=== PATIENT | female | born 2000 | race Two or more races ===

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

== ENCOUNTER 2022-08-07 12:04 | Emergency (ER) | payer OTHER, SELFPAY ==
[2022-08-07 12:05] VITALS: BP 120/79; PULSE 63; RESP 14; TEMP 36.6; O2SAT 98; BMI 21.2
--- NOTE | 2022-08-07 12:56 | EX.ED.DYSGE1 ---
HPI History of Present Illness Chief Complaint: Anxiety Informant: patient Narrative Narrative: Patient presents with what she thinks was a panic attack. She has had these before but they have been quite rare. She states she is under a lot of stress. She is taking 7 classes at school, doing competitive swimming, and working multiple jobs. Because of this she has been drinking a lot of caffeine the last couple days. She has not been sleeping much because of this. She normally drinks about 3 cups of coffee in a day. But she has had at least 4 cups of coffee plus for other energy drinks plus a few others. She was sitting in class and she stated she started to feel anxious a little short of breath with her heart racing. She had trouble focusing. It is now better now. She has never had PE or DVT. No leg pain or swelling. She feels back to baseline. She is talked to her mom. There are talking about stopping the competitive swimming because of the significant time that it takes on her. PFSH PFSH Medical History no medical history Allergy/AdvReac Type Severity Reaction Status Date / Time No Known Allergies Allergy Verified 08/07/22 12:04 Social History Smoking Status: Never smoker ROS ROS ED Constitutional Constitutional ED: Denies chills or fever(s) Eyes Eyes: Denies blurry vision, change in vision or diplopia ENT ENT ED: Denies rhinorrhea Cardiovascular Cardiovascular: Reports racing heartbeat; Denies chest pain Respiratory/Chest Respiratory/Chest: Reports dyspnea; Denies cough or sputum Gastrointestinal Gastrointestinal: Denies vomiting Genitourinary Genitourinary ED: Denies dysuria or hematuria Musculoskeletal Musculoskeletal: Denies arthralgias or myalgias Integumentary Denies Abrasions or rash Neurologic Neurologic: Reports paresthesias; Denies headache(s) or weakness Psychiatric Psychiatric: Denies anxiety, depression, suicidal ideation or suicidal thoughts Endocrine Endocrinology: Denies polydipsia or polyuria Hematologic/Lymphatic Hematologic/Lymphatic: Denies easy bleeding or easy bruising Allergic/Immunologic Allergic/Immunologic ED: Reports urticaria EXAM Physical Exam Const Vital Signs: 08/07/22 12:05 Temperature 97.9 F Temperature Source Oral Pulse Rate 63 Respiratory Rate 14 Blood Pressure 120/79 Blood Pressure Mean 92 Pulse Ox 98 Oxygen Delivery Method Room Air Positive well nourished and well developed General Appearance ED: well developed and NAD; Negative for cyanotic or diaphoretic HEENT Reports moist mucous membranes Eyes PERRL and EOMs intact bilaterally General Eye ED: Negative for scleral icterus Neck supple Resp normal respiratory effort and clear to auscultation bilaterally Cardio regular rate, regular rhythm and no murmurs Rate: Negative for tachycardic GI normal to inspection, nondistended, normoactive bowel sounds and non-tender Palpation: soft Back/Spine no CVA tenderness Extremity normal to inspection General Extremety ED: Negative for edema or tenderness General Extremity: Negative for edema Neuro oriented x3 and no sensory deficits noted Motor Exam: strength 5/5 throughout Psych mental status grossly normal Attitude: No agitated Mood & Affect: Negative for depressed, anxious or tearful Skin no rashes or lesions noted MDM MDM MDM Narrative Medical decision making narrative: Patient has a history of panic attacks. She has multiple stressors and increase stimulant use that would cause this. They spontaneously started and stopped. She is a healthy person who competitively swims. She has no symptoms with this. Her exam is normal and her symptoms are resolved. I do not think work-up is needed. She has a normal sinus rhythm at about 70 on the monitor now. She is comfortable with this plan. She will make lifestyle changes. Discharge Plan Triage Chief Complaint: Anxiety ED Provider: Kelvin Crow Dx/Rx/DC Orders Clinical Impression: Panic attack, Caffeine adverse reaction Instructions: ED Panic Attack Referrals: Monica Barba DO [Med Staff - [employer]] - 3-5 Days Disposition Disposition: Home, Self Care
[2022-08-07 13:53] VITALS: BP 116/66; PULSE 66; RESP 16; O2SAT 96
== END 2022-08-07 13:55 | disposition home or self-care (01) ==
PROVIDERS: Emergency Provider Emergency Medicine; Visit Provider Emergency Medicine
DX: F41.0 Panic disorder [episodic paroxysmal anxiety] (principal); T43.615A Adverse effect of caffeine, initial encounter
CPT/HCPCS: 99284

== ENCOUNTER 2023-01-10 14:00 | Emergency (ER) | payer OTHER, SELFPAY ==
[2023-01-10 14:01] VITALS: BP 95/73; PULSE 89; RESP 14; TEMP 36.7; O2SAT 100; BMI 22.2
[2023-01-10 14:58] LABS: Absolute Lymphocyte Count 0.46 X10^3/uL (0.83-4.51); Basophil# 0.02 X10^3/uL; Basophil% 0.2 % (0-1); Eosinophil# 0.06 X10^3/uL; Eosinophils% 0.6 % (0-5); Hematocrit 40.2 % (37-47); Hemoglobin 13.5 g/dL (12.0-15.0); Lymphocyte # 0.46 X10^3/ul (0.83-4.51); Lymphocyte % 4.5 % (19-41); Mean Corp Hgb Conc 33.6 g/dL (32-36); Mean Corpuscular Hgb 31.6 pg (27.0-32.0); Mean Corpuscular Volume 94.1 fL (81-99); Mean Platelet Vol. 10.6 fl (6.2-12.0); Monocyte# 0.56 X10^3/uL; Monocyte% 5.5 % (0-10); NRBC Flagged by Analyzer 0 % (0-5); Neutrophil # 9.04 X10^3/uL (2.7-7.7); Neutrophil % 88.7 % (47-70); POSITIVE DIFFERENTIAL YES; Platelet Count 175 K/mm3 (150-450); RBC Distribution Width CV 13.4 % (11.6-14.6); RBC Distribution Width SD 46.1 fl (35.1-43.9); Red Blood Count 4.27 M/mm3 (4.2-5.4); White Blood Count 10.2 K/mm3 (4.4-11.0)
[2023-01-10 15:11] LABS: Anion Gap 6 (5-15); BUN 14 mg/dL (7-18); BUN/Creat Ratio 17.6 RATIO (10-20); Calcium,Total 8.6 mg/dL (8.5-10.1); Chloride 108 mmol/L (98-107); EST Glomerular Filtration Rate 97 mL/min (>60); Est Glom Filt Rate - Afr Amer 118 mL/min (>60); Estimated Creatinine Clearance 105.01 ml/min; Glucose 90 mg/dL (74-106); Potassium 3.7 mmol/L (3.5-5.1); Sodium Level 142 mmol/L (136-145)
[2023-01-10 15:14] LABS: Differential Indicated SCAN CRITERIA MET
[2023-01-10 15:17] LABS: Internal QC Validated? YES +Cl - CLEAR BKGD; Pregnancy, Serum, hCG Quali. NEGATIVE Negative
[2023-01-10 15:55] LABS: Differential Comment SCANNED
--- NOTE | 2023-01-10 16:04 | EDS_ITS ---
HPI HPI - GI History of Present Illness Chief Complaint: Abd Pain Informant: patient Narrative Narrative: Presents with vomiting since 4:30 AM this morning. Approximately 4 episodes with bile. She had diarrhea earlier this morning is resolved. She went to the wellness center at her school they gave her medicine started with an M which did not work. Denies abdominal cramping states lightheaded symptoms. No chest pains or shortness of breath. No urinary symptoms last menstrual period 2 weeks ago. History of anxiety not on any current medications. Currently nauseated. Denies any recent antibiotic use. Prior similar symptoms: No PFSH PFSH Home Medications ondansetron 4 mg disintegrating tablet 4 mg PO Q8H PRN PRN Nausea #10 tabs 01/10/23 [Rx Last Taken Unknown] Allergy/AdvReac Type Severity Reaction Status Date / Time No Known Allergies Allergy Verified 01/10/23 14:01 Social History Smoking Status: Never smoker ROS ROS ED Constitutional Constitutional ED: Denies chills, fever(s) or sweats Eyes Eyes: Denies change in vision ENT ENT ED: Denies dysphagia or sore throat Cardiovascular Cardiovascular: Denies chest pain, leg edema, palpitations or racing heartbeat Respiratory/Chest Respiratory/Chest: Denies cough, dyspnea or dyspnea on exertion Gastrointestinal Gastrointestinal: Reports diarrhea, nausea and vomiting; Denies abdominal pain Genitourinary Genitourinary ED: Denies dysuria, hematuria or urinary frequency Musculoskeletal Musculoskeletal: Denies back pain, extremity pain or neck pain Integumentary Denies rash or wounds Neurologic Neurologic: Denies headache(s), paresthesias or weakness EXAM Physical Exam Const Vital Signs: 01/10/23 14:01 01/10/23 16:45 Temperature 98.1 F Temperature Source Temporal Pulse Rate 89 Respiratory Rate 14 Blood Pressure 95/73 Blood Pressure Mean 80 Pulse Ox 100 99 Oxygen Delivery Method Room Air Room Air Positive well nourished and well developed General Appearance ED: well developed and NAD HEENT HEENT Narrative: Mild dry mucosal membranes normocephalic and atraumatic Eyes PERRL, EOMs intact bilaterally and conjunctivae normal General Eye ED: Yes normal appearance of both eyes Neck no lymphadenopathy and supple General: Negative for tenderness Chest Wall Chest: Negative for tenderness Resp normal respiratory effort and normal air movement Effort and Inspection: symmetric chest movement; Negative for respiratory distress Cardio regular rate, regular rhythm and no murmurs Peripheral Pulses: pulses 2+ throughout GI normal to inspection, nondistended, normoactive bowel sounds and non-tender GI Narrative: Negative Hooper's or McBurney's tenderness. Palpation: Negative for guarding or rebound tenderness present Back/Spine no CVA tenderness and no thoracic nor lumbar tenderness Extremity normal to inspection General Extremety ED: Negative for edema or tenderness General Extremity: Negative for edema Neuro oriented x3, CN's II-XII intact bilaterally and no sensory deficits noted Sensorium / Orientation: awake and alert Skin no rashes or lesions noted and no wounds MDM MDM MDM Narrative Medical decision making narrative: Interventions / MDM: Differential diagnosis: Gastroenteritis, gastritis, Diagnosis considered but do not suspect: Cholecystitis, however nontender abdomen. No risk for C. difficile. My EKG interpretation: N/A Imaging independently reviewed and interpreted by myself: N/A External documents reviewed: N/A Test considered but not ordered:N/A ED course: Patient soft abdomen, nonsurgical. Reported pain from nursing triage however patient denied any. Nausea or vomiting with diarrhea this morning it resolved. Mild dry mucosal membranes. IV established fluids were given Labs stable electrolytes white count 10.2 hCG negative. Urine noted 25 leukocytes rare bacteria she denies symptoms, culture sent we will treat at this time. Re-evaluation: Improving symptoms tolerating oral fluids. Prescription Zofran sent to her pharmacy. Discussed likely viral gastroenteritis. She will continue oral fluids at home, return precaution discussed. There was discussion social history she denies smoking marijuana use. 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 Discussed possible sensitivity to the older causing symptoms. All questions were answered. Disposition discussed with patient/family/significant other: Patient and family Case discussed with consulting clinician: N/A Lab Data Attestation: I reviewed the patient's lab results. Labs: Laboratory Results - last 24 hr 01/10/23 01/10/23 01/10/23 14:47 14:47 14:47 WBC 10.2 RBC 4.27 Hgb 13.5 Hct 40.2 MCV 94.1 MCH 31.6 MCHC 33.6 RDW Std Deviation 46.1 H RDW Coeff of Anjelica 13.4 Plt Count 175 MPV 10.6 Immature Gran % (Auto) 0.500 Neut % (Auto) 88.7 H Lymph % (Auto) 4.5 L [place] % (Auto) 5.5 Eos % (Auto) 0.6 Baso % (Auto) 0.2 Absolute Neuts (auto) 9.0 H Absolute Lymphs (auto) 0.46 L Nucleated RBC % 0 Differential Comment SCANNED Sodium 142 Potassium 3.7 Chloride 108 H Carbon Dioxide 28.0 Anion Gap 6 BUN 14 Creatinine 0.80 Estim Creat Clear Calc 105.01 Est GFR (MDRD) Af Amer 118 Est GFR (MDRD) Non-Af 97 BUN/Creatinine Ratio 17.6 Glucose 90 Calcium 8.6 Serum , Qual NEGATIVE Urine Color Urine Clarity Urine pH Ur Specific [place] Urine Protein Urine Glucose (UA) Urine Ketones Urine Occult Blood Urine Nitrite Urine Bilirubin Urine Urobilinogen Ur Leukocyte Esterase Urine RBC Urine WBC Ur Squamous Epith Cells Urine Bacteria Urine Mucus 01/10/23 16:00 WBC RBC Hgb Hct MCV MCH MCHC RDW Std Deviation RDW Coeff of Anjelica Plt Count MPV Immature Gran % (Auto) Neut % (Auto) Lymph % (Auto) [place] % (Auto) Eos % (Auto) Baso % (Auto) Absolute Neuts (auto) Absolute Lymphs (auto) Nucleated RBC % Differential Comment Sodium Potassium Chloride Carbon Dioxide Anion Gap BUN Creatinine Estim Creat Clear Calc Est GFR (MDRD) Af Amer Est GFR (MDRD) Non-Af BUN/Creatinine Ratio Glucose Calcium Serum , Qual Urine Color Yellow Urine Clarity Clear Urine pH 5.0 Ur Specific [place] 1.020 Urine Protein 15 H Urine Glucose (UA) Normal Urine Ketones 5 H Urine Occult Blood Negative Urine Nitrite Negative Urine Bilirubin Negative Urine Urobilinogen Normal Ur Leukocyte Esterase 25 H Urine RBC 0 SEEN Urine WBC 0-5 SEEN Ur Squamous Epith Cells 0 SEEN Urine Bacteria RARE Urine Mucus 1+ Discharge Plan Triage Chief Complaint: Abd Pain ED Provider: Silvio Richardson Dx/Rx/DC Orders Clinical Impression: Nausea & vomiting, Diarrhea, Dehydration Instructions: ED Gastroenteritis, Viral (Adult) Prescriptions: New ondansetron [ondansetron] 4 mg tablet,disintegrating 4 mg PO Q8H PRN PRN (Reason: Nausea) Qty: 10 0RF Stand Alone Forms: ED Work / School Excuse Primary Care Provider: RACHAEL BARBOSA Referrals: RACHAEL BARBOSA [Other] - 3-5 Days if not improving Disposition Disposition: Home, Self Care Discharge Date/Time: 01/10/23 17:31
[2023-01-10 16:07] LABS: Red Blood Cells-Urine 0 SEEN /hpf (0-5); Squamous Epithelial Cells - UA 0 SEEN /hpf (5-10)
[2023-01-10 16:16] LABS: Color, Urine Yellow (Yellow); Glucose, Dipstick Normal (Normal); Ketone-Dipstick 5 mg/dl (Negative); Leukocyte Esterase-Dipstick 25 /ul (Negative); Nitrite-Dipstick Negative (Negative); Occult Blood-Urine Negative /ul (Negative); Protein-Dipstick 15 mg/dl (Negative); Urine Bilirubin Dipstick Negative (Negative); Urine Clarity Clear (Clear); Urine Urobilinogen Normal (Normal)
[2023-01-10 16:41] LABS: Bacteria RARE /hpf (None Seen); Mucous, Urine 1+ /hpf (<or=2+); White Blood Cells 0-5 SEEN /hpf (0-5)
[2023-01-10 16:45] VITALS: O2SAT 99
[2023-01-10] MEDS: Ondansetron 4 MG/2 ML Vial IV (16:49)
== END 2023-01-10 17:31 | disposition home or self-care (01) ==
PROVIDERS: Emergency Provider Emergency Medicine; Visit Provider Emergency Medicine
DX: E86.0 Dehydration (principal); R10.9 Unspecified abdominal pain; R11.2 Nausea with vomiting, unspecified; R19.7 Diarrhea, unspecified
CPT/HCPCS: 80048; 81001; 84703; 85025; 87086; 87088; 96361; 96374; 99282; J7030; J2405